=== PATIENT | male | born 1995 | race Caucasian/White ===

== ENCOUNTER 2023-01-14 17:03 | Inpatient (IN) | payer BC, SELFPAY ==
[2023-01-14] VITALS (7 sets, daily range): BP systolic 112–137; BP diastolic 72–94; PULSE 66–108; RESP 16–23; TEMP 37.1; O2SAT 93–100; BMI 20.2; BMI 19.6
--- NOTE | ~2023-01-14 | XR_ITS ---
EXAMINATION: XR chest 1V portable 01/14/2023 18:22 INDICATION: Altered mental status PROCEDURE: AP portable chest COMPARISON: No prior studies for comparison. FINDINGS: The lungs are clear. The cardiomediastinal silhouette is within normal limits. There are no pleural effusions. There is no pneumothorax suspected. IMPRESSION: 1: NO ACUTE CARDIOPULMONARY DISEASE. Reviewed, dictated and finalized at location A.
--- NOTE | ~2023-01-14 | CT_ITS ---
EXAMINATION: CT BRAIN W/O DATE: 01/15/2023 20:24 INDICATION: Seizure TECHNIQUE: Computed tomography (CT) of the head was performed without intravenous contrast. The dose- length product was 605.33 mGy-cm. Automated exposure control and iterative reconstruction technique w ere employed. COMPARISON: CT dated 01/14/2023 FINDINGS: Normal brain parenchymal volume for age. Normal alicea-white differentiation. No acute intrac ranial hemorrhage, infarction, mass or mass effect. No ventriculomegaly or midline shift. Midline sagittal images demonstrate a normal corpus callosum, c raniovertebral junction and sella turcica. Basilar cisterns are patent. Paranasal sinuses and mastoids are pneumatized. No depressed skull fractures. IMPRESSION: 1. No acute intracranial abnormality. Reviewed, dictated and finalized at location A.
--- NOTE | ~2023-01-14 | CT_ITS ---
EXAMINATION: CT cervical spine wo con DATE: 01/14/2023 18:16 INDICATION: Altered mental status TECHNIQUE: Computed tomography (CT) of the cervical spine was performed without intravenous contrast. The dose-length product was 681 mGy-cm. Automated exposure control and iterative reconstruction tech nique were employed. COMPARISON: None FINDINGS: Normal cervical alignment. Vertebral body heights are maintained. No evidence for perched f acet. There are mild uncinate degenerative changes. No paraspinal soft tissue abnormality. Study limi srinivas by motion artifact. Craniovertebral junction is normal. No paraspinal soft tissue abnormality. IMPRESSION: 1. No acute abnormality of the cervical spine. Reviewed, dictated and finalized at location A.
--- NOTE | ~2023-01-14 | CT_ITS ---
EXAMINATION: CT BRAIN W/O DATE: 01/14/2023 18:16 INDICATION: Altered mental status TECHNIQUE: Computed tomography (CT) of the head was performed without intravenous contrast. The dose- length product was 681.00 mGy-cm. Automated exposure control and iterative reconstruction technique w ere employed. COMPARISON: No prior studies for comparison. FINDINGS: Normal brain parenchymal volume for age. Normal alicea-white differentiation. No acute intrac ranial hemorrhage, infarction, mass or mass effect. No ventriculomegaly or midline shift. Midline sagittal images demonstrate a normal corpus callosum, c raniovertebral junction and sella turcica. Basilar cisterns are patent. Paranasal sinuses and mastoids are pneumatized. No depressed skull fractures. IMPRESSION: 1. No acute intracranial abnormality. Reviewed, dictated and finalized at location A.
--- NOTE | 2023-01-14 17:20 | ECG_ITS ---
Measurements Intervals [place] Rate: 89 P: 60 MA: 112 QRS: 75 QRSD: 87 T: 72 QT: 358 QTc: 438 Interpretive Statements SINUS RHYTHM WITH SHORT MA INTERVAL ABNORMAL ECG NO PREVIOUS ECG AVAILABLE FOR COMPARISON Electronically Signed On 01-15-2023 9:09:52 CDT by Jaxon Tripathi M.D.
[2023-01-14 17:40] LABS: Alveolar/Arterial O2 Gradient 8.3 mmHg; Base Excess ABG -3.8 mEq/l (+/-2.0); Fractional Inspired Oxygen 21 %; HCO3 ABG 21.1 mEq/l (22.0-26.0); Oxygen Content ABG 19.9 %vol (16.0-22.0); Oxygen Saturation ABG 97.1 % (95.0-100.0); Oxyhemoglobin 94.6 % THb (90.0-100.0); PO2 ABG 95.9 mmHg (80.0-100.0); PO2 FiO2 Ratio Arterial Blood 4.57 %; Total Hemoglobin 14.9 g/dL (12.0-18.0); pH ABG 7.363 (7.350-7.450)
[2023-01-14 17:41] LABS: Device ROOM AIR; Modified Allen's Test Pass; Site Drawn LEFT RADIAL
[2023-01-14] MEDS: SODIUM CHLORIDE 0.9% IV 1,000 ML 999 ML IV CONT (17:43)
[2023-01-14] MEDS: ONDANSETRON INJ 4 MG/2 ML VIAL IV PUSH (17:43)
[2023-01-14] MEDS: NALOXONE HCL 0.4 MG/ML VIAL IV PUSH (17:44)
--- NOTE | 2023-01-14 17:57 | PC.NURSE ---
Patient off unit to CT>
[2023-01-14 18:21] LABS: Glucose Point of Care 84 mg/dl (65-105)
[2023-01-14 19:10] LABS: Basophils Percent Auto 0.3 % (0.2-1.2); Eosinophils Absolute Auto 0.1 K/mm3 (0-0.3); Hematocrit 41.7 % (42.0-52.0); Hemoglobin 14.4 g/dL (14.0-18.0); Immature Granulocyte Absolute 0.02 K/mm3 (0.00-0.031); Immature Granulocyte Percent A 0.3 % (0-0.5); Lymphocytes Absolute Auto 1.71 K/mm3 (0.9-3.2); Lymphocytes Percent Auto 28.8 % (18.3-44.2); Mean Corpuscular HGB Conc 34.5 g/dl (32-36); Mean Corpuscular Hemoglobin 31.6 pg (26-34); Mean Corpuscular Volume 91.4 fl (80-100); Monocytes Absolute Auto 0.4 K/mm3 (0.1-0.6); Monocytes Percent Auto 7.3 % (2.6-8.5); Neutrophils Absolute Auto 3.7 K/mm3 (1.3-6.7); Neutrophils Percent Auto 62.3 % (45.5-73.1); Platelet Count Result 184 k/mm3 (150-375); Red Blood Count 4.56 M/mm3 (4.6-6.20); Red Cell Distribution Width 12.6 % (11.5-14.5); White Blood Count 5.9 K/mm3 (4.5-10.0)
--- NOTE | 2023-01-14 19:13 | ED.AMS ---
HPI - Altered Mental Status General Chief Complaint: Altered Mental Status Stated Complaint: AMS Time Seen by Provider: 01/14/23 17:10 Source: patient, EMS and RN notes reviewed Mode of arrival: EMS Limitations: intoxication History of Present Illness HPI narrative: This is a 27 year old male who presents via EMS for altered mental status. It is reported that patient is having a hard time dealing with a divorce. IT is reported that friend came over to visit and patient was found slumped over disoriented. He told nursing state that he took 7 (2 mg )xanax and maybe mushrooms. His dad reports patient had sipped of beer. Patient has wound to his forehead due to falling on Monday due to alcohol use. Patient did not require medical treatment at that time. Parents states patient was doing fine yesterday and today. Related Data Allergies Allergy/AdvReac Type Severity Reaction Status Date / Time No Known Allergies Allergy Verified 01/14/23 17:42 Review of Systems Review of Systems: ROS unobtainable: Yes unobtainable due to mental status (intoxication) [facility] Past Medical History Medical History (Updated 01/14/23 @ 22:10 by Staci Gonzalez PA-C) Polysubstance abuse Surgical History Surgical History (Updated 01/14/23 @ 22:10 by Staci Gonzalez PA-C) History of myringotomy History of open reduction and internal fixation (ORIF) procedure Repair of leg fracture. Family History Family History (Updated 01/14/23 @ 22:12 by Staci Gonzalez PA-C) Other Family history non-contributory Social History Social History (Updated 01/14/23 @ 22:06 by Vicenta Walls MD) Smoking status: Smoker, status unknown Alcohol intake: current Substance use: current Substance use type: prescription drug Exam Const: Other: patient appears intoxicated with slurred speech, HENMT: Face and sinus: normal facial exam Throat: posterior oropharynx normal and uvula midline Other: wound to forehead, stellate material, no surrounding erythema, no drainage Eyes: Conjunctivae: conjunctivae normal EOM: EOMs intact bilaterally Neck: Neck: normal visual inspection Chest: Chest palpation & inspection: normal inspection of the chest Resp: Effort & Inspection: normal respiratory effort Auscultation: clear to auscultation bilaterally Cardio: Rate: regular rate Rhythm: regular rhythm Heart sounds: no murmurs GI: GI Palp: Yes Soft to palpation, No Tenderness to palpation present (GI), No Guarding due to palpation present (GI) and No Rigid due to palpation Auscultation: normal bowel sounds Skin: General skin exam: normal color Wounds: wounds noted (forehead wound) Neuro: General: moves all extremities and CN's II-XI intact bilaterally Other: slurred speech Course Reevaluation(s) Reevaluation #1: I Discussed with patient's parents his findings and he will be admitted for alcohol intoxication and rhabdomyolsysis Date: 01/14/23 Time: 21:00 Consultations Consultation #1: I Discussed case with Staci. Request patient be overflow to ICU for suicidal watch since unable to perform columbia or assess suicide status. It is unclear if patient tried to overdose when he took multiple xanax Date: 01/14/23 Time: 20:49 Vital Signs Vital signs: Vital Signs Pulse Rate 94 01/14/23 17:04 Respiratory Rate 23 H 01/14/23 17:04 Blood Pressure 124/83 01/14/23 17:04 Pulse Oximetry 100 01/14/23 17:04 Oxygen Delivery Room Air 01/14/23 17:04 Pulse Rate 87 01/14/23 21:12 Respiratory Rate 17 01/14/23 21:12 Blood Pressure 112/72 01/14/23 21:12 Pulse Oximetry 99 01/14/23 21:12 Oxygen Delivery Room Air 01/14/23 17:04 MDM - Altered Mental Status MDM Narrative Medical decision making narrative: Patient presents AMS with possible alcohol and drug use. PAtient has signs of recent head injury so CT brain and CT cervical spine ordered labs, EKG, 1 liter NS bolus
[2023-01-14 19:21] LABS: Partial Thromboplastin Time 22.4 SECONDS (22.3-36.8); Prothrombin Time 13.1 Seconds (11.1-14.7)
--- NOTE | 2023-01-14 19:22 | PC.NURSE ---
Patient report given to KENDALL Vo. All questions answered and care of patient transferred.
[2023-01-14 19:24] LABS: Appearance Urine Clear (Clear); Bacteria Urine None Seen /hpf; Bilirubin Urine Negative (Negative); Blood Urine 2+ (Negative); Color Urine Yellow (Yellow); Glucose Urine UA Negative (Negative); Ketones Urine Negative (Negative); Lactic Acid Reflex 2.2 mmol/L (0.7-2.0); Leukocyte Esterase Ur Negative LEU/UL (Negative); Need Manual Microscopic Reviewed; Nitrate Urine Negative (Negative); Non Pathogenic Casts 0-2; Protein Urine Negative (Negative); RBC Urine 0-2 /hpf (0-2); Specific Grav Ur 1.004 (1.001-1.035); Squamous Epithelial Cell Urine None seen /hpf (Few); Urobilinogen Urine 0.2 mg/dL (<2.0); WBC Urine 0-5 /hpf; pH Urine 5.5 (5.0-9.0)
[2023-01-14 19:25] LABS: Add Urine Microscopic? YES
[2023-01-14 19:26] LABS: Alanine Aminotransferase 55 U/L (6-50); Albumin Level 4.4 g/dL (3.5-5.1); Alkaline Phosphatase 51 U/L (38-126); Anion Gap 10 mmol/L (8-16); Aspartate Amino Transferase 374 U/L (17-59); Barbiturate Screen Urine Negative (Negative); Benzodiazepines Screen Urine Negative (Negative); Bilirubin,Total 0.3 mg/dL (0.2-1.3); Blood Urea Nitrogen 14 mg/dL (9-20); Calcium 8.3 mg/dL (8.4-10.2); Carbon Dioxide 30 mmol/L (22-30); Chloride 104 mmol/L (98-107); Estimated CRCL calculation 115 ml/min; Estimated Glomerular Filt Rate > 60; Glucose 92 mg/dL (65-110); Potassium 3.8 mmol/L (3.4-5.0); Sodium 144 mmol/L (137-145)
[2023-01-14 19:27] LABS: Amphetamine Screen Urine Negative (Negative); Cannabinoid Screen Urine Negative (Negative); Cocaine Screen Urine Negative (Negative); Opiate Screen Urine Negative (Negative); Phencyclidine Screen Urine Negative (Negative)
[2023-01-14 19:38] LABS: Troponin I < 0.012 ng/mL (0.000-0.034)
[2023-01-14 19:39] LABS: Acetaminophen < 10 ug/mL (10-30); Salicylate < 1.0 mg/dL (2-20)
[2023-01-14 19:48] LABS: Methadone Screen Urine Negative (Negative)
[2023-01-14 19:51] LABS: Ethanol 364 mg/dL (<10)
[2023-01-14 20:38] LABS: Creatine Kinase > 16000 U/L (55-170)
[2023-01-14] MEDS: LACTATED RINGERS 1,000 ML 999 ML IV CONT (21:11)
--- NOTE | 2023-01-14 21:51 | PM.IMHP ---
H&P: HPI History of Present Illness Date/Time: 01/14/23 21:00 Chief Complaint: Altered mental status. Narrative: This is a 27-year-old male with history of substance abuse who presented to the emergency department via EMS from his parent's home for evaluation of altered mental status. The patient is able to provide some history however he is intoxicated and his parents provide additional information, with the patient's permission. He has had problems with alcohol for several years and it sounds as though he typically binge drinks. His has become increasingly frustrated with his alcohol use and he has been trying to cut back although he has been obtaining Xanax off the street in its place. Several days ago she told the patient's that she wanted to separate and he came down on to spend the weekend with his parents. Parents believe that he has perhaps been taking Xanax as he seems intoxicated at times during the day however he denied that. They last saw him normal today at lunchtime and several hours there after a friend came to visit and found him essentially unresponsive. Friend assumed that he may have taken Xanax but they mention he does have a history of doing other drugs such as mushrooms and ketamine. The patient is adamant that he did not take anything but he also said he was not drinking and his alcohol level was 364 on arrival today. The patient thinks he has a concussion from a fall on Monday evening when he was in the bathroom however he goes on to say that he does not remember how he fell. He did bite his tongue in the fall but he denies loss of bladder and bowel. He has no history of alcohol withdrawal symptoms or seizure. He denies using Xanax daily and states he does not use it in significant quantities, just recreationally however he could not qualify. He denies fever, chills, sweats, focal weakness, chest pain, pleuritic pain, shortness a breath, nausea, vomiting, diarrhea, and dysuria. Emergency services were contacted and he was brought in for evaluation. Vital signs have been stable since arrival. Brain CT, cervical spine CT, and chest x-ray showed no acute findings. Ethyl alcohol level was 364. His urine drug screen was negative. Acetaminophen and salicylate levels were undetectable. BMP and CBC were really unremarkable. AST was 374, ALT 55, total CK greater than 16,000. He has been started on aggressive IV fluid rehydration he is being admitted in this setting for treatment of rhabdomyolysis. He will also be monitored closely with a sitter in the room as there are some concerns that he has they pressed and may have taken upwards of 7, 2 mg tablets of Xanax this afternoon. He admits that he is sad and depressed that his left him but he denies suicidal ideation and he has no history of suicide attempt. Review of Systems Review of Systems: Twelve systems were reviewed and are negative except for as per HPI. [facility] Past Medical History Medical History (Updated 01/14/23 @ 22:26 by Staci Gonzalez PA-C) Polysubstance abuse Seronegative arthritis Previously on methotrexate and Enbrel, stopped taking at age 19. Surgical History Surgical History (Updated 01/14/23 @ 22:10 by Staci Gonzalez PA-C) History of myringotomy History of open reduction and internal fixation (ORIF) procedure Repair of leg fracture. Family History Family History Other Family history non-contributory Social History Social History (Updated 01/14/23 @ 22:17 by Staci Gonzalez PA-C) Smoking status: Smoker, status unknown Alcohol intake: current Substance use: current Substance use type: prescription drug Other substance usage details: Marijuana, Xanax, mushrooms, ketamine Additional living arrangements comments: Patient lives in [place]. He and his recently . 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 Meds Home Medications and Al
--- NOTE | 2023-01-14 22:05 | ADMGEN ---
This patient, Waylon Camarena, was admitted to IMU Room 206-02 on 01/14/23 at 2205. Patient/family oriented to hospital policies and general routines including ID bracelet, bed and alarms, visiting hours, pain management, procedures, bathroom and other care routines, personal items, smoking policy, room service/diet, and visiting hours. Information on how to activate the Rapid Response Team has been discussed. Patient/Family are encouraged to report perceived risks to care and to ask questions if they do not understand what they are told or what they should do.
[2023-01-14 22:07] LABS: Reflex Lactic Acid Yes or No Add Lactic
--- NOTE | 2023-01-14 22:47 | PC.NURSE ---
This patient, Waylon Camarena, was transferred to ICU-04 on 01/14/23 at 2230 as Pt will be on suicide precautions. Personal belongings sent with patient. Report given to KENDALL Steve. Appropriate documentation sent with patient.
[2023-01-14 22:49] LABS: Glucose Point of Care 72 mg/dl (65-105)
[2023-01-14] MEDS: LACTATED RINGERS 1,000 ML 200 ML IV CONT (22:58)
[2023-01-14 23:23] LABS: Lactic Acid 1.7 mmol/L (0.7-2.0)
[2023-01-15] VITALS (13 sets, daily range): BP systolic 111–144; BP diastolic 80–97; PULSE 55–113; RESP 10–20; TEMP 36.4–37.5; O2SAT 98–100
[2023-01-15] MEDS: LACTATED RINGERS 1,000 ML 200 ML IV CONT ×5 (03:42→23:51)
[2023-01-15 03:52] LABS: Basophils Percent Auto 0.4 % (0.2-1.2); Eosinophils Percent Auto 0.6 % (0-4.4); Hematocrit 43.7 % (42.0-52.0); Hemoglobin 14.9 g/dL (14.0-18.0); Immature Granulocyte Absolute 0.01 K/mm3 (0.00-0.031); Immature Granulocyte Percent A 0.2 % (0-0.5); Lymphocytes Absolute Auto 1.44 K/mm3 (0.9-3.2); Lymphocytes Percent Auto 29.8 % (18.3-44.2); Mean Corpuscular HGB Conc 34.1 g/dl (32-36); Mean Corpuscular Hemoglobin 31.1 pg (26-34); Mean Corpuscular Volume 91.2 fl (80-100); Mean Platelet Volume 9.8 fl (7.4-10.4); Monocytes Absolute Auto 0.3 K/mm3 (0.1-0.6); Monocytes Percent Auto 5.8 % (2.6-8.5); Neutrophils Absolute Auto 3.1 K/mm3 (1.3-6.7); Neutrophils Percent Auto 63.2 % (45.5-73.1); Platelet Count Result 190 k/mm3 (150-375); Red Blood Count 4.79 M/mm3 (4.6-6.20); Red Cell Distribution Width 12.8 % (11.5-14.5); White Blood Count 4.8 K/mm3 (4.5-10.0)
[2023-01-15 04:05] LABS: Ethanol 191 mg/dL (<10)
[2023-01-15 04:13] LABS: Alanine Aminotransferase 62 U/L (6-50); Albumin Level 4.4 g/dL (3.5-5.1); Alkaline Phosphatase 54 U/L (38-126); Anion Gap 7 mmol/L (8-16); Aspartate Amino Transferase 371 U/L (17-59); Bilirubin,Total 0.2 mg/dL (0.2-1.3); Blood Urea Nitrogen 11 mg/dL (9-20); Calcium 8.5 mg/dL (8.4-10.2); Carbon Dioxide 35 mmol/L (22-30); Chloride 105 mmol/L (98-107); Estimated CRCL calculation 109 ml/min; Estimated Glomerular Filt Rate > 60; Glucose 99 mg/dL (65-110); Magnesium 1.8 mg/dL (1.6-2.3); Potassium 3.9 mmol/L (3.4-5.0); Sodium 147 mmol/L (137-145)
[2023-01-15 09:20] LABS: Creatine Kinase > 16000 U/L (55-170)
--- NOTE | 2023-01-15 10:54 | PM.IMPN ---
Progress Note: A&P Assessment and Plan (1) Altered mental status: Code(s): R41.82 - Altered mental status, unspecified Status: Acute Assessment and Plan: Resolved (2) Alcohol intoxication: Code(s): F10.929 - Alcohol use, unspecified with intoxication, unspecified Status: Acute Assessment and Plan: Continue IV fluids. (3) Rhabdomyolysis: Code(s): M62.82 - Rhabdomyolysis Status: Acute Assessment and Plan: Monitor CK (4) Polysubstance abuse: Code(s): F19.10 - Other psychoactive substance abuse, uncomplicated Status: Acute Assessment and Plan: Ritesh crisis evaluation in the next day or so (5) Transaminitis: Code(s): R74.01 - Elevation of levels of liver transaminase levels Status: Acute Assessment and Plan: Monitor (6) Depressed: Code(s): F32.A - Depression, unspecified Status: Acute Subjective Date/time seen: 01/15/23 10:54 Interval history: No complaints Exam Narrative: General: The patient appears intoxicated. Weight: 67.5 kg. BMI: 20.2. HEENT: Z shaped abrasion on the forehead with surrounding yellow bruise. PERRL, EOMI. Sclera anicteric. Conjunctiva are injected. Tacky mucous membranes. Neck: Supple. No midline vertebral tenderness. Respiratory: Lungs are clear to auscultation bilaterally. Cardiovascular: Regular rate and rhythm with S1-S2. Gastrointestinal: Abdomen is soft, nontender, and nondistended with positive bowel sounds. Skin: Warm and dry. No rash or lesions on limited exam. Extremities: No cyanosis, clubbing, or edema. Radial and pedal pulses intact. Neurological: Alert and oriented. Cranial nerves 2-12 are grossly intact. Speech is slurred due to intoxication. No gross focal deficits to casual conversation. Psychiatric: Cooperative. Difficult to assess as he is currently intoxicated. Objective Data Vital Signs Vital Signs: Vital Signs - 24 hr 01/14/23 17:04 01/14/23 17:58 01/14/23 19:04 Temperature Pulse Rate 94 66 Respiratory Rate 23 H 16 Blood Pressure 124/83 Pulse Oximetry 100 100 95 Oxygen Delivery Room Air 01/14/23 19:15 01/14/23 21:12 01/14/23 22:27 Temperature 98.7 F Pulse Rate 73 87 101 H Respiratory Rate 16 17 20 Blood Pressure 112/72 134/87 Pulse Oximetry 93 99 100 Oxygen Delivery 01/14/23 23:00 01/14/23 22:40 01/15/23 00:09 Temperature 97.6 F Pulse Rate 108 H 113 H Respiratory Rate 17 20 Blood Pressure 137/94 H 142/97 H Pulse Oximetry 100 100 Oxygen Delivery Room Air 01/15/23 00:00 01/15/23 02:00 01/15/23 03:53 Temperature Pulse Rate 108 H 76 76 Respiratory Rate 20 Blood Pressure Pulse Oximetry 100 Oxygen Delivery Room Air 01/15/23 04:00 01/15/23 04:00 01/15/23 06:00 Temperature 98 F Pulse Rate 70 72 80 Respiratory Rate 19 Blood Pressure 111/92 H Pulse Oximetry 100 Oxygen Delivery 01/15/23 07:56 01/15/23 08:00 01/15/23 08:00 Temperature 99.1 F Pulse Rate 64 64 Respiratory Rate 13 Blood Pressure 136/80 Pulse Oximetry 98 100 Oxygen Delivery Room Air 01/15/23 08:00 Temperature Pulse Rate 64 Respiratory Rate 13 Blood Pressure Pulse Oximetry 100 Oxygen Delivery Room Air Intake/Output Intake/Output: Intake & Output 01/12/23 01/13/23 01/14/23 01/15/23 23:59 23:59 23:59 23:59 Intake Total 1999 2360 Balance 1999 2360 Meds/Results Medications: Active Medications Generic Name Dose Route Start Last Admin Trade Name Freq PRN Reason Stop Dose Admin Lactated Ringer's 1,000 mls @ 200 mls/hr 01/14/23 20:55 01/15/23 08:44 Lr - Lactated Ringers Iv IV CONT 200 mls/hr .Q5H IRMA Administration Ondansetron HCl 4 mg 01/14/23 20:52 Ondansetron Inj 4 Mg/2 Ml Vial IV PUSH Q4H PRN Nausea Radiology Results: ITS Impressions Head CT 01/14/23 18:19 IMPRESSION: 1. No acute intracranial abnormality. Cervi
--- NOTE | 2023-01-15 14:45 | PHAR ---
PT'S HOME MED LANSOPRAZOLE 15 MG CAPS VERIFIED BY PHARMACY
[2023-01-15 16:14] LABS: Glucose Point of Care 86 mg/dl (65-105)
[2023-01-15 16:14] LABS: Glucose Point of Care 88 mg/dl (65-105)
[2023-01-15] MEDS: LORazepam INJ (*CRX) 2 MG/ML VIAL (18:46)
--- NOTE | 2023-01-15 18:47 | PC.NURSE ---
pt had a seizure lasting several minutes, PA notified and ativan given per order, then pa at bedside talking with pt and parents.
--- NOTE | 2023-01-15 19:04 | PM.EVENT ---
Event Note Event Note Event Note: S: I received a call from the patient's nurse that he was having a grand mal seizure. Parents in the room report that he was alert and talking when he suddenly started to seize. Seizure lasted a couple of minutes and he received 2 mg of IV Ativan. No history of seizure however he had a ?fall? on Monday night which he does not remember with tongue bite thus it is presumed that he had a seizure at that time as well. He is postictal at the time my exam and cannot give much in the way of history. O: Ill-appearing male in the postictal state. He is diaphoretic. Conjunctiva are injected. Old abrasion on the right forehead. Evidence of prior tongue bite and new bruising to the tip of the tongue compared to previous exam. He is alert to name, age, and date of . He is aware that he is in the hospital. Reports year as 2014. Tachycardic and tachypneic but in no respiratory distress. No cyanosis or clubbing. Pulses intact. A: Grand mal seizure. May be related to alcohol or benzodiazepine withdrawal but suspect likely benzodiazepine withdrawal as he has not had Xanax for a couple of days. P: Ativan 2 mg IV p.r.n. as needed for seizure activity. Initiate seizure precautions. STAT brain CT to rule out bleed given fall with head trauma on Monday. Start scheduled Librium; he may need an extended taper. Hold on anti seizure medications for now, pending Neurology input. Critical Care Time Critical Care Time: Yes Total Critical Care Time: 40 Attestation: Due to a high probability of clinically significant, life threatening deterioration, the patient required my highest level of preparedness to intervene emergently and I personally spent this critical care time directly and personally managing the patient. This critical care time included obtaining a history; examining the patient; pulse oximetry; ordering and review of studies; arranging urgent treatment with development of a management plan; evaluation of patient's response to treatment; frequent reassessment; and discussions with other providers. It was exclusive of separately billable procedures and treating other patients and teaching time. Please see Assessment and Plan section and the rest of the note for further information on patient assessment and treatment.
[2023-01-15 20:54] LABS: Lactic Acid Reflex 2.3 mmol/L (0.7-2.0)
[2023-01-15 21:00] LABS: Anion Gap 6 mmol/L (8-16); Blood Urea Nitrogen 11 mg/dL (9-20); Calcium 8.7 mg/dL (8.4-10.2); Carbon Dioxide 29 mmol/L (22-30); Chloride 100 mmol/L (98-107); Estimated CRCL calculation 124 ml/min; Estimated Glomerular Filt Rate > 60; Glucose 97 mg/dL (65-110); Potassium 3.8 mmol/L (3.4-5.0); Sodium 135 mmol/L (137-145)
[2023-01-15 21:42] LABS: Creatine Kinase > 16000 U/L (55-170)
[2023-01-15] MEDS: ACETAMINOPHEN 325 MG TABLET 650 MG PO (21:59)
[2023-01-15] MEDS: MELATONIN 3 MG TABLET PO (21:59)
[2023-01-15 23:42] LABS: Reflex Lactic Acid Yes or No Add Lactic
[2023-01-15] MEDS: chlordiazePOXIDE (*CRX) 25 MG CAPSULE PO (23:51)
[2023-01-16] VITALS (12 sets, daily range): BP systolic 118–141; BP diastolic 72–97; PULSE 46–74; RESP 10–14; TEMP 36.6–37.2; O2SAT 98–100
[2023-01-16 00:07] LABS: Lactic Acid 0.9 mmol/L (0.7-2.0)
[2023-01-16] MEDS: LACTATED RINGERS 1,000 ML 200 ML IV CONT ×4 (05:01→21:00)
[2023-01-16] MEDS: chlordiazePOXIDE (*CRX) 25 MG CAPSULE PO ×4 (05:04→23:06)
[2023-01-16 05:22] LABS: Alanine Aminotransferase 48 U/L (6-50); Albumin Level 3.2 g/dL (3.5-5.1); Alkaline Phosphatase 43 U/L (38-126); Anion Gap 3 mmol/L (8-16); Aspartate Amino Transferase 218 U/L (17-59); Bilirubin,Total 0.6 mg/dL (0.2-1.3); Blood Urea Nitrogen 9 mg/dL (9-20); Calcium 8.3 mg/dL (8.4-10.2); Carbon Dioxide 32 mmol/L (22-30); Chloride 102 mmol/L (98-107); Estimated CRCL calculation 142 ml/min; Estimated Glomerular Filt Rate > 60; Glucose 85 mg/dL (65-110); Potassium 3.3 mmol/L (3.4-5.0); Sodium 137 mmol/L (137-145)
[2023-01-16 05:40] LABS: Creatine Kinase > 16000 U/L (55-170)
[2023-01-16] MEDS: POTASSIUM CHLORIDE 20 MEQ ER TABLET 40 MEQ PO (08:44)
--- NOTE | 2023-01-16 11:17 | PM.IMPN ---
Progress Note: A&P Assessment and Plan (1) Altered mental status: Code(s): R41.82 - Altered mental status, unspecified Status: Acute Assessment and Plan: Resolved (2) Alcohol intoxication: Code(s): F10.929 - Alcohol use, unspecified with intoxication, unspecified Status: Acute Assessment and Plan: Continue IV fluids. (3) Rhabdomyolysis: Code(s): M62.82 - Rhabdomyolysis Status: Acute Assessment and Plan: Monitor CK (4) Polysubstance abuse: Code(s): F19.10 - Other psychoactive substance abuse, uncomplicated Status: Acute Assessment and Plan: Ritesh crisis evaluation in the next day or so (5) Transaminitis: Code(s): R74.01 - Elevation of levels of liver transaminase levels Status: Acute Assessment and Plan: Monitor (6) Depressed: Code(s): F32.A - Depression, unspecified Status: Acute (7) Other seizures: Code(s): G40.89 - Other seizures Status: Acute Assessment and Plan: Neuro consult 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 Currently on Librium. Subjective Date/time seen: 01/16/23 11:17 Interval history: Doing okay, no SI or HI today. Seizure overnight. Now resolved. Alert oriented x3 Exam Narrative: General: The patient appears intoxicated. Weight: 67.5 kg. BMI: 20.2. HEENT: Z shaped abrasion on the forehead with surrounding yellow bruise. PERRL, EOMI. Sclera anicteric. Conjunctiva are injected. Tacky mucous membranes. Neck: Supple. No midline vertebral tenderness. Respiratory: Lungs are clear to auscultation bilaterally. Cardiovascular: Regular rate and rhythm with S1-S2. Gastrointestinal: Abdomen is soft, nontender, and nondistended with positive bowel sounds. Skin: Warm and dry. No rash or lesions on limited exam. Extremities: No cyanosis, clubbing, or edema. Radial and pedal pulses intact. Neurological: Alert and oriented. Cranial nerves 2-12 are grossly intact. Speech is slurred due to intoxication. No gross focal deficits to casual conversation. Psychiatric: Cooperative. Difficult to assess as he is currently intoxicated. Objective Data Vital Signs Vital Signs: Vital Signs - 24 hr 01/15/23 12:00 01/15/23 12:00 01/15/23 12:00 Temperature 99.5 F Pulse Rate 63 63 63 Pulse Rate [Monitor] Respiratory Rate 10 L 10 L Blood Pressure 118/95 H Pulse Oximetry 100 100 Oxygen Delivery Room Air 01/15/23 16:00 01/15/23 16:00 01/15/23 16:00 Temperature 98.7 F Pulse Rate 55 L 55 L 55 L Pulse Rate [Monitor] Respiratory Rate 13 13 Blood Pressure 132/88 Pulse Oximetry 100 100 Oxygen Delivery Room Air 01/15/23 20:28 01/15/23 20:00 01/15/23 20:00 Temperature 98.8 F Pulse Rate 67 67 Pulse Rate [Monitor] 67 Respiratory Rate 12 Blood Pressure 144/95 H Pulse Oximetry 100 Oxygen Delivery 01/16/23 00:00 01/16/23 04:00 01/16/23 00:00 Temperature Pulse Rate 47 L 46 L Pulse Rate [Monitor] 47 L Respiratory Rate Blood Pressure Pulse Oximetry Oxygen Delivery 01/16/23 00:00 01/16/23 04:00 01/16/23 00:00 Temperature 98.5 F Pulse Rate 50 L Pulse Rate [Monitor] 46 L Respiratory Rate 13 Blood Pressure 132/93 H Pulse Oximetry 99 Oxygen Delivery Room Air 01/16/23 04:00 01/16/23 08:00 01/16/23 08:00 Temperature 99 F 98.4 F Pulse Rate 48 L 49 L Pulse Rate [Monitor] 49 L Respiratory Rate 14 13 Blood Pressure 118/91 H 122/72 122/72 Pulse Oximetry 98 100 Oxygen Delivery 01/16/23 08:00 01/16/23 08:00 01/16/23 10:00 Temperature Pulse Rate 51 L 65 Pulse Rate [Monitor] Respiratory Rate Blood Pressure Pulse Oximetry 100 Oxygen Delivery Room Air Intake/Output Intake/Output: Intake & Output 01/13/23 01/14/23 01/15/23 01/16/23 23:59 23:59 23:59 23:59 Intake Total 1999 6020 2600 Balance 1999 6020 2600 Meds/Results Medications: Ac
--- NOTE | 2023-01-16 11:28 | WPDNEURCNPN ---
Assessment and Plan Assessment and plan (1) Altered mental status: Code(s): R41.82 - Altered mental status, unspecified Status: Acute (2) Polysubstance abuse: Code(s): F19.10 - Other psychoactive substance abuse, uncomplicated Status: Acute (3) Rhabdomyolysis: Code(s): M62.82 - Rhabdomyolysis Status: Acute (4) Other seizures: Code(s): G40.89 - Other seizures Status: Acute Plan Waylon Camarena is a 27 year old male with a history of substance abuse presented due to altered mental status. He had a witnessed seizure during this hospitalization. Concern for seizure secondary to alcohol or benzodiazepine withdrawal. - No daily antiseizure medications needed at this point - Agree with alcohol withdrawal protocol - If additional seizures, load with Keppra 4g - Discussed no driving until seizure free for 6 months Consult date: 01/16/23 HPI: Waylon Camarena is a 27 year old male with a history of substance abuse presented due to altered mental status. Patient has a history of binge drinking. He and his recently decided to separate. Patient had been staying with his parents subsequently. They have reported that he seems intoxicated during the day, and has been taking Xanax on occasion too. On day of presentation, patient's friend found him slumped over and unresponsive. There are reports that patient to 7 x 2mg tablets of Xanax and possibly some mushrooms. Patient denied this as well as denied any alcohol use. His alcohol level was 364 in the ED. There were no reports of seizure like activity, although the fall was unwitnessed. He does not remember how he fell but he did bite his tongue without any incontinence. His urine drug screen was negative. CT head was negative for acute process. AST was 374 and ALT 55. CK was greater than 16K. He was started on IV fluids and subsequently admitted. On 01/15 patient had a generalized tonic clonic seizures that was witnessed by nursing staff. The seizure lasted several minutes and was aborted by 2mg of Ativan. Repeat CT head was negative for acute process. He was subsequently started on Librium. Patient denies any other complaints this morning. He suspects that the seizure occurred due to acute benzo withdrawal. He has been consistently taking 3-4 mg of Xanax for sometime now. Review of Systems Constitutional: Constitutional: Denies chills, Denies fever(s) and Denies weight loss Eyes: Eyes: Denies diplopia and Denies loss of vision ENT: Denies dizziness, Denies hearing loss and Denies tinnitus Cardiovascular: Cardiovascular: Denies chest pain, Denies syncope and Denies dyspnea Respiratory: Respiratory: Denies cough, Denies dyspnea and Denies wheezing Gastrointestinal: Gastrointestinal: Denies abdominal pain, Denies change in bowel habits and Denies vomiting Genitourinary: Genitourinary: Denies urinary incontinence Musculoskeletal: Musculoskeletal: Reports myalgias, Denies arthralgias and Denies joint swelling Integumentary/Breasts: Skin/Breast: Denies new lesions and Denies rash Neurologic: Reports as per HPI, Denies dizziness, Denies syncope and Denies loss of vision Psychiatric: Psychiatric: Denies anxiety and Denies depression Endocrine: Endocrine: Denies cold intolerance and Denies heat intolerance Hematologic/Lymphatic: Hematologic/Lymphatic: Denies easy bleeding and Denies easy bruising Allergic/Immunologic: Allergic/Immunologic: Denies no additional allergic/immunologic complaints and Denies wheezing PMFSH Past Medical History Medical History Polysubstance abuse Seronegative arthritis Previously on methotrexate and Enbrel, stopped taking at age 19. Surgical History Surgical History History of myringotomy History of open reduction and internal fixation (ORIF) procedure Repair of leg fracture. Family History Family History (Revi
[2023-01-16] MEDS: FAMOTIDINE 20 MG TABLET PO (18:07)
[2023-01-16] MEDS: MELATONIN 3 MG TABLET PO (23:06)
[2023-01-17] VITALS (14 sets, daily range): BP systolic 125–151; BP diastolic 72–104; PULSE 49–98; RESP 12–18; TEMP 36.5–37; O2SAT 100
[2023-01-17] MEDS: LACTATED RINGERS 1,000 ML 200 ML IV CONT ×5 (02:05→19:40)
[2023-01-17 04:23] LABS: Basophils Percent Auto 0.4 % (0.2-1.2); Eosinophils Absolute Auto 0.1 K/mm3 (0-0.3); Eosinophils Percent Auto 1.4 % (0-4.4); Hemoglobin 12.6 g/dL (14.0-18.0); Immature Granulocyte Absolute 0.02 K/mm3 (0.00-0.031); Immature Granulocyte Percent A 0.4 % (0-0.5); Lymphocytes Absolute Auto 1.87 K/mm3 (0.9-3.2); Lymphocytes Percent Auto 37.6 % (18.3-44.2); Mean Corpuscular HGB Conc 34.1 g/dl (32-36); Mean Corpuscular Hemoglobin 31.3 pg (26-34); Mean Platelet Volume 9.9 fl (7.4-10.4); Monocytes Absolute Auto 0.4 K/mm3 (0.1-0.6); Monocytes Percent Auto 8.4 % (2.6-8.5); Neutrophils Absolute Auto 2.6 K/mm3 (1.3-6.7); Neutrophils Percent Auto 51.8 % (45.5-73.1); Platelet Count Result 148 k/mm3 (150-375); Red Blood Count 4.02 M/mm3 (4.6-6.20); Red Cell Distribution Width 12.8 % (11.5-14.5)
[2023-01-17 04:43] LABS: Anion Gap 3 mmol/L (8-16); Blood Urea Nitrogen 6 mg/dL (9-20); Calcium 8.3 mg/dL (8.4-10.2); Carbon Dioxide 31 mmol/L (22-30); Chloride 105 mmol/L (98-107); Estimated CRCL calculation 124 ml/min; Estimated Glomerular Filt Rate > 60; Glucose 93 mg/dL (65-110); Potassium 3.7 mmol/L (3.4-5.0); Sodium 139 mmol/L (137-145)
[2023-01-17 05:27] LABS: Creatine Kinase 13425 U/L (55-170)
[2023-01-17] MEDS: chlordiazePOXIDE (*CRX) 25 MG CAPSULE PO ×4 (05:56→23:39)
--- NOTE | 2023-01-17 12:10 | PM.IMPN ---
Progress Note: A&P Assessment and Plan (1) Altered mental status: Code(s): R41.82 - Altered mental status, unspecified Status: Acute Assessment and Plan: Resolved (2) Alcohol intoxication: Code(s): F10.929 - Alcohol use, unspecified with intoxication, unspecified Status: Acute Assessment and Plan: Continue IV fluids. (3) Rhabdomyolysis: Code(s): M62.82 - Rhabdomyolysis Status: Acute Assessment and Plan: Monitor CK (4) Polysubstance abuse: Code(s): F19.10 - Other psychoactive substance abuse, uncomplicated Status: Acute Assessment and Plan: Ritesh crisis evaluation in the next day or so (5) Transaminitis: Code(s): R74.01 - Elevation of levels of liver transaminase levels Status: Acute Assessment and Plan: Monitor (6) Depressed: Code(s): F32.A - Depression, unspecified Status: Acute Assessment and Plan: Denies SI or HI (7) Other seizures: Code(s): G40.89 - Other seizures Status: Acute Assessment and Plan: No additional seizure Neuro consult 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 Currently on Librium. Plan Need to set up some sort of detox plan so he does not have rebound seizures. Subjective Date/time seen: 01/17/23 12:10 Interval history: No complaints No seizures overnight. No additional benzodiazepine needed, only his Librium. Exam Narrative: General: The patient appears intoxicated. Weight: 67.5 kg. BMI: 20.2. HEENT: Z shaped abrasion on the forehead with surrounding yellow bruise. PERRL, EOMI. Sclera anicteric. Conjunctiva are injected. Tacky mucous membranes. Neck: Supple. No midline vertebral tenderness. Respiratory: Lungs are clear to auscultation bilaterally. Cardiovascular: Regular rate and rhythm with S1-S2. Gastrointestinal: Abdomen is soft, nontender, and nondistended with positive bowel sounds. Skin: Warm and dry. No rash or lesions on limited exam. Extremities: No cyanosis, clubbing, or edema. Radial and pedal pulses intact. Neurological: Alert and oriented. Cranial nerves 2-12 are grossly intact. Speech is slurred due to intoxication. No gross focal deficits to casual conversation. Psychiatric: Cooperative. Difficult to assess as he is currently intoxicated. Objective Data Vital Signs Vital Signs: Vital Signs - 24 hr 01/16/23 14:00 01/16/23 16:00 01/16/23 16:00 Temperature 98.7 F Pulse Rate 67 65 Pulse Rate [Monitor] 65 Respiratory Rate 12 Blood Pressure 141/91 H 141/91 H Pulse Oximetry 100 Oxygen Delivery 01/16/23 16:00 01/16/23 16:00 01/16/23 18:00 Temperature Pulse Rate 66 70 Pulse Rate [Monitor] Respiratory Rate Blood Pressure Pulse Oximetry 100 Oxygen Delivery Room Air 01/16/23 20:00 01/16/23 20:00 01/16/23 20:00 Temperature 98 F Pulse Rate 62 62 Pulse Rate [Monitor] 62 Respiratory Rate 10 L 10 L Blood Pressure 140/77 Pulse Oximetry 100 100 Oxygen Delivery Room Air 01/16/23 20:00 01/16/23 22:00 01/16/23 23:07 Temperature 98.2 F Pulse Rate 74 60 60 Pulse Rate [Monitor] Respiratory Rate 12 Blood Pressure 133/97 H Pulse Oximetry 100 Oxygen Delivery 01/17/23 00:00 01/17/23 00:00 01/17/23 00:00 Temperature Pulse Rate 60 52 L Pulse Rate [Monitor] 53 L Respiratory Rate 12 Blood Pressure Pulse Oximetry 100 Oxygen Delivery Room Air 01/17/23 02:00 01/17/23 04:00 01/17/23 04:00 Temperature 97.9 F Pulse Rate 53 L 98 Pulse Rate [Monitor] 50 L Respiratory Rate 15 Blood Pressure 151/90 H 151/90 H Pulse Oximetry 100 Oxygen Delivery 01/17/23 04:00 01/17/23 04:00 01/17/23 06:00 Temperature Pulse Rate 98 50 L 54 L Pulse Rate [Monitor] Respiratory Rate 15 Blood Pressure Pulse Oximetry 100 Oxygen Delivery Room Air 01/17/23 08:00 01/17/23 08:00 01/17/23 08:00 Temperature Pulse
[2023-01-17] MEDS: FAMOTIDINE 20 MG TABLET PO (18:09)
[2023-01-17] MEDS: MELATONIN 3 MG TABLET PO (23:39)
[2023-01-18] VITALS: PULSE 51
[2023-01-18] MEDS: LACTATED RINGERS 1,000 ML 200 ML IV CONT ×2 (01:41→05:21)
[2023-01-18 02:00] VITALS: PULSE 49
[2023-01-18 04:00] VITALS: BP 142/96; PULSE 48; RESP 14; TEMP 36.7; O2SAT 100
[2023-01-18 05:01] LABS: Anion Gap 4 mmol/L (8-16); Blood Urea Nitrogen 8 mg/dL (9-20); Calcium 8.8 mg/dL (8.4-10.2); Carbon Dioxide 32 mmol/L (22-30); Chloride 104 mmol/L (98-107); Estimated CRCL calculation 125 ml/min; Estimated Glomerular Filt Rate > 60; Glucose 91 mg/dL (65-110); Potassium 3.5 mmol/L (3.4-5.0); Sodium 140 mmol/L (137-145)
[2023-01-18] MEDS: chlordiazePOXIDE (*CRX) 25 MG CAPSULE PO ×2 (05:21→11:48)
[2023-01-18 05:44] LABS: Creatine Kinase 7966 U/L (55-170)
[2023-01-18 06:00] VITALS: PULSE 50
[2023-01-18 08:00] VITALS: BP 134/86; PULSE 63; PULSE 65; RESP 14; TEMP 36.8; O2SAT 100
[2023-01-18 10:00] VITALS: PULSE 70
--- NOTE | 2023-01-18 11:18 | PM.DS ---
DS: Admitting Diagnosis Discharge Date 01/18/2023 Admitting Diagnosis Alcohol intoxication Drug overdose DS: Discharge Diagnosis Discharge Diagnosis (1) Other seizures: Code(s): G40.89 - Other seizures Status: Acute (2) Depressed: Code(s): F32.A - Depression, unspecified Status: Acute (3) Alcohol intoxication: Code(s): F10.929 - Alcohol use, unspecified with intoxication, unspecified Status: Acute (4) Altered mental status: Code(s): R41.82 - Altered mental status, unspecified Status: Acute (5) Polysubstance abuse: Code(s): F19.10 - Other psychoactive substance abuse, uncomplicated Status: Acute (6) Rhabdomyolysis: Code(s): M62.82 - Rhabdomyolysis Status: Acute DS: Summary Hospital Course Hospital Course: (1) Altered mental status: ?Code(s): R41.82 - Altered mental status, unspecified ?Status:?Acute ?Assessment and Plan: Resolved (2) Alcohol intoxication: ?Code(s): F10.929 - Alcohol use, unspecified with intoxication, unspecified ?Status:?Acute ?Assessment and Plan: Continue IV fluids. (3) Rhabdomyolysis: ?Code(s): M62.82 - Rhabdomyolysis ?Status:?Acute ?Assessment and Plan: Monitor CK (4) Polysubstance abuse: ?Code(s): F19.10 - Other psychoactive substance abuse, uncomplicated ?Status:?Acute ?Assessment and Plan: Outpatient drug rehab (5) Transaminitis: ?Code(s): R74.01 - Elevation of levels of liver transaminase levels ?Status:?Acute ?Assessment and Plan: Monitor (6) Depressed: ?Code(s): F32.A - Depression, unspecified ?Status:?Acute ?Assessment and Plan: Denies SI or HI (7) Other seizures: ?Code(s): G40.89 - Other seizures ?Status:?Acute ?Assessment and Plan: No additional seizure Neuro consult 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 Currently on Librium. Patient is stable and is being discharged home. Time Spent with Patient Time attestation: Total time spent providing and/or coordinating discharge services: DS: Data Data Completed and Pending Labs on day of discharge: Labs from last 24 hours 01/18/23 04:24 Sodium 140 Potassium 3.5 Chloride 104 Carbon Dioxide 32 H Anion Gap 4 L BUN 8 L Creatinine 0.70 Estim Creat Clear Calc 125 Estimated GFR > 60 Glucose 91 Calcium 8.8 Total Creatine Kinase 7966 H Discharge Plan Discharge Consulting providers: Av Ramos; Mavis Louis Discharging Clinician: Marcin Snow Anticipated Discharge Date/Time: 01/18/23 11:13 Patient Disposition: Home, Self-Care Activity: no preference Diet: regular Patient Instructions: Antibiotic Form, Rhabdomyolysis (DC), Abuse of Alcohol (DC), Suicide Prevention (DC), Narcotic Use Disorder (DC) Stand Alone Forms: General Discharge Information Follow-up/Referrals: Av Ramos MD [Physician] - Discharge Medications: New chlordiazepoxide HCl 25 mg capsule 25 mg PO BID Qty: 10 0RF Rx Instructions: 25 mg p.o. b.i.d. for 3 days, then 12.5 mg p.o. b.i.d. for 3 days then 12.5 mg p.o. daily for 2 days Date of admission: 01/16/23 10:41 Primary Care Provider: PHYSICIAN,HIGHBALLER Admitting Provider: Lázaro El Attending physician on admission: Marcin Snow Condition: Stable
== END 2023-01-18 11:58 | disposition home or self-care (01) | DRG 897 ==
LOC: ANHED 17:44 → ANHIMU 22:08 → ANHICU 23:58 → ANHIMU 01-15 07:42
PROVIDERS: Chiropractor; Physician Assistant; Admitting Provider Internal Medicine; Emergency Provider General Practice; Visit Provider Hospitalist
DX: F13.239 Sedative, hypnotic or anxiolytic dependence with withdrawal, unspecified (principal); G40.89 Other seizures; M62.82 Rhabdomyolysis; F10.129 Alcohol abuse with intoxication, unspecified; F32.A Depression, unspecified; R74.01 Elevation of levels of liver transaminase levels; Y90.8 Blood alcohol level of 240 mg/100 ml or more
CPT/HCPCS: 36415; 36600; 70450; 71045; 72125; 80048; 80053; 80307; 81001; 82550; 82805; 82948; 83605; 83735; 84443; 84484; 85025; 85610; 85730; 93005; 96361; 96374; 96375; 99285; A9270; G0378; J2060; J2310; J2405; J7030; J7120